=== PATIENT | female | born 1955 | race Caucasian/White ===

== ENCOUNTER → 2016-11-13 | Outpatient (CLI) | payer OTHER ==
[~2016-11-13] MED LIST: ALBUTEROL17 GM INH; AUGMENTIN875 M1 PO; FUROSEMIDE40 MG PO; HYDROCODON-ACE1 EAC9 PO; HYDROXYZINE HCL25 M1 PO; IBUPROFEN800 MG PO; K-DUR10 MEQ PO; LISINOPRIL20 MG PO; NYSTATIN15 GM OINT EXT; ONDANSETRON HCL4 MG PO; PHENERGAN25 M1 PO; PROPRANOLOL HCL10 M1 PO; PROTONIX PO; SPECTAZOLE15 GM TOP; SPIRIVA18 MCG INH; SYMBICORT INH; TEMOVATE30 GM TOP; TYL325 PO; TYLENOL #2 PO; TYLENOL #3 PO
--- NOTE | ~2016-11-13 | CT138 ---
[facility] A Service of [facility] RADIOLOGY TEXT RESULTS PATIENT: PILY CONLEY LOCATION: [facility] : 57 UNIT #: [id number] AGE: [address]: MERLE CRISOSTOMO APRN SEX: F ORDER DR: [id number] [address] [id number] O MR#: [id number] Acc #: [id number] NAME: PILY CONLEY : 1955 SEX: F STUDY DATE/TIME: 11/13/2016 10:04 UNIT: [facility] ROOM: STUDY DESCRIPTION: CT Lung screening initial Attending Physician: Merle Crisostomo Aprn Referring Physician: Merle Crisostomo Aprn Ordering Physician: Merle Crisostomo Aprn Primary Care Physician: [facility] IMAGING REPORT This report is preliminary unless electronic signature is present EXAM CT of the chest without contrast, lung cancer screening. INDICATION 55 pack-year total smoking history. Former smoker quit 10 years ago. Baseline study. TECHNIQUE CT scan of the chest was performed without contrast using the low-dose lung cancer screening protocol. CT dose index was 3 mGy. Coronal and sagittal reformatted images were obtained. This CT exam was performed with one or more of the following radiation dose reduction techniques: automatic exposure control, adjustment of mA and/or kV according to patient size, and iterative reconstruction. COMPARISON STUDIES Comparison is made with 05/24/2016. FINDINGS Emphysema. Stable 4 mm nodular density in the left upper lobe adjacent to the pleural surface. Stable scarring in the lung apices. There is a tiny micronodule in the superior segment of the left lower lobe on image 58. No suspicious pulmonary nodule. No lymphadenopathy. No pleural effusion. Limited imaging of the upper abdomen demonstrates a cholecystectomy. The bone windows are unremarkable. IMPRESSION 1. Emphysema. 2. 2 tiny nodules in the lungs. ACR Lung-RADS category 2. Followup annual low-dose lung cancer screening chest CT in 1 year. [facility] A Service of [facility] RADIOLOGY TEXT RESULTS PATIENT: PILY CONLEY LOCATION: [facility] : 57 UNIT #: [id number] AGE: [address]: MERLE CRISOSTOMO APRN SEX: F ORDER DR: Dictated by... Yevgeniy Alvarado M.D. THIS IS AN ELECTRONICALLY VERIFIED REPORT Yevgeniy Alvarado M.D. at 11/15/2016 7:46 AM JUAN ANTONIO/roberto TD: 11/13/2016 11:07 JOB #: [id number] MEDICAL IMAGING REPORT Page 1 of 1 COPY
== END | disposition home or self-care (01) ==
LOC: CCAT 09:00
DX: Z87.891 Personal history of nicotine dependence (principal); J43.9 Emphysema, unspecified; R91.8 Other nonspecific abnormal finding of lung field
CPT/HCPCS: G0297